=== PATIENT | male | born 1975 | race Caucasian/White ===

== ENCOUNTER 2016-10-16 12:54 | Outpatient (CLI) ==
--- NOTE | 2016-10-16 21:53 | MRI ---
EXAM: MRI left knee without contrast. HISTORY: Multiple knee surgeries. Patellar removed. Quadriceps muscle reattached. Injury recentl y slipping on rock. 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 Left knee pain.. COMPARISON: Three-view plain film examination left knee 10/11/2016. TECHNIQUE: Using a local extremity coil on a high field strength magnet multiplanar multisequence m agnet resonance imaging performed of the left knee without intravenous or intra-articular gadolinium contrast.. FINDINGS: Within the medial compartment the medial meniscus is intact without discrete surfacing me niscal tear. The medial compartment cartilage relatively congruent without focal underlying subchon dral edema. Within the lateral compartment lateral meniscus is intact without discrete surfacing meniscal tear. 7 mm focus of chondrosis and shallow cartilage ulceration over the more medial weightbearing aspect of the lateral femoral condyle. No underlying subchondral edema. Within the patellofemoral compartment the patella has been resected. There is chondrosis and cartila ge attenuation/denudation over the trochlear groove. Trace left knee effusion. No osteochondral loose bodies. Intact anterior and posterior cruciate li gament fibers . No translation of the tibia with respect to the femur. The extensor mechanism cons isting of the quadriceps/patellar tendon is intact without full-thickness disruption. There is holguin henry diffuse thickening with signal heterogeneity suggestive of chronic tendinosis. The medial colla teral ligament as well as lateral collateral ligament complex and posterolateral corner intact. The re is a large focus of bone marrow edema/contusion with appearance of impaction fracture over the an terior central tibial plateau. No bone erosions.. IMPRESSION: No discrete surfacing meniscal tear. 7 mm focus of chondrosis and shallow cartilage ulc eration over the more medial weightbearing aspect of the lateral femoral condyle. Trace left effusion. Intact cruciate and collateral ligaments. Prior patellar resection. Chronic tendinosis of the quadriceps/patellar tendon without full-thickne ss disruption. Large focus of bone marrow edema/contusion with appearance of impaction fracture over the anterior c entral tibial plateau.
== END 2016-10-16 12:55 | disposition home or self-care (01) ==
LOC: RAD 12:54
PROVIDERS: ATTEND Physician Assistant Medical
DX: M25.562 Pain in left knee (principal)

== ENCOUNTER 2017-03-17 12:02 | Emergency (ER) ==
[2017-03-17 12:15] VITALS: BP 146/102; TEMP 98.8; BMI 31.5
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
[2017-03-17 13:18] LABS: BASOPHILS # (AUTO) 0.1 K/uL (0-0.2); BASOPHILS % (AUTO) 1.2 % (0.0-3.0); EOSINOPHILS # (AUTO) 0.3 K/ul (0.0-0.7); EOSINOPHILS % (AUTO) 3.9 % (0.0-7.0); HEMATOCRIT 46.7 % (42.0-52.0); HEMOGLOBIN 16.2 g/dl (14.0-18.0); IMMATURE GRANULOCYTE % (AUTO) 0.2 % (0.0-5.0); LYMPHOCYTES # (AUTO) 2.4 K/uL (0.60-3.4); LYMPHOCYTES % (AUTO) 28.4 (10.0-50.0); MEAN CORPUSCULAR HEMOGLOBIN 30.9 pg (27.0-31.0); MEAN CORPUSCULAR HGB CONC 34.7 (31.8-35.4); MONOCYTES # (AUTO) 0.7 K/uL (0.4-2.0); MONOCYTES % (AUTO) 8.1 (0-10); NEUTROPHILS # (AUTO) 4.9 K/ul (2.0-6.9); NEUTROPHILS % (AUTO) 58.2; PLATELET COUNT 164 10^3/uL (140-440); RED BLOOD COUNT 5.25 10^6/ul (4.70-6.10); WHITE BLOOD COUNT 8.43 K/ul (4.2-10.2)
--- NOTE | 2017-03-17 13:41 | DI ---
EXAM: Two views of the chest. History: Cough. Findings: Heart size is within normal limits. No focal consolidation. No appreciable pleural fluid and no pneumothorax. No acute osseous abnormalities. Postsurgical changes of the cervical spine. Impression: No acute cardiopulmonary process.
[2017-03-17 13:58] LABS: ALANINE AMINOTRANSFERASE 20 U/L (12-78); ALBUMIN 3.8 g/dL (3.4-5.0); ALBUMIN/GLOBULIN RATIO 1.19; ALKALINE PHOSPHATASE 102 U/L (50-136); ANION GAP 11.5; ASPARTATE AMINO TRANSFERASE 15 U/L (15-37); BILIRUBIN,TOTAL 0.36 mg/dL (0.00-1.20); BLOOD UREA NITROGEN 7 mg/dL (7-18); BUN/CREATININE RATIO 8.43; CALCIUM 9.5 mg/dL (8.2-10.2); CARBON DIOXIDE 27 mmol/L (21-32); CHLORIDE 107 mmol/L (98-107); CREATINE KINASE 181 U/L; CREATININE 0.83 mg/dL (0.60-1.10); GLUCOSE 89 mg/dL (70-100); POTASSIUM 4.5 mmol/L (3.5-5.1); SODIUM 141 mmol/L (136-145)
[2017-03-17 14:20] LABS: CREATINE KINASE MB 3.2 ng/ml (0.0-3.6)
== END 2017-03-17 14:40 | disposition home or self-care (01) ==
LOC: ED 12:02
DX: R05 Cough (principal); R07.9 Chest pain, unspecified; I10 Essential (primary) hypertension; F17.210 Nicotine dependence, cigarettes, uncomplicated
CPT/HCPCS: 36415; 80053; 82550; 82553; 83880; 84484; 85025; 85379; 87040; 93005; 93010; 99282